=== PATIENT | male | born 2000 | race Hispanic/Latino ===

== ENCOUNTER 2019-08-09 11:00 | Outpatient (RCR) | payer BC | END 2019-08-10 | LOC: OT 11:00 | PROVIDERS: ATTEND Orthopaedic Surgery Hand Surgery | DX: S61.210A Laceration without foreign body of right index finger without damage to nail, initial encounter (principal); W25.XXXA Contact with sharp glass, initial encounter | CPT/HCPCS: 97010; 97110 ×3; 97165; L3808 ==

== ENCOUNTER 2019-09-01 11:00 | Outpatient (RCR) | payer BC | END 2019-09-09 | LOC: OT 11:00 | PROVIDERS: ATTEND Orthopaedic Surgery Hand Surgery | DX: S61.210A Laceration without foreign body of right index finger without damage to nail, initial encounter (principal); W25.XXXA Contact with sharp glass, initial encounter ==

== ENCOUNTER 2019-09-24 09:00 | Outpatient (RCR) | payer BC | END 2019-10-10 | LOC: OT 09:00 | PROVIDERS: ATTEND Orthopaedic Surgery Hand Surgery | DX: S66.320A Laceration of extensor muscle, fascia and tendon of right index finger at wrist and hand level, initial encounter (principal); M79.641 Pain in right hand; M25.641 Stiffness of right hand, not elsewhere classified ==